=== PATIENT | male | born 1995 | race Caucasian/White ===

== ENCOUNTER 2019-12-20 08:02 | Emergency (ER) | payer BC, OTHER ==
[~2019-12-20] VITALS: Ht 189 cm; Wt 73.5 kg
[~2019-12-20 08:02] MED LIST: AZTH250C PO; CEPH500C PO; HYOS0.1217 PO; OMEP40CA36 PO; PRM25T PO; SERT25TA PO
[2019-12-20] MEDS ORDERED: NS IV 1000 ML 1,000 ML ONE (08:31)
[2019-12-20] MEDS ORDERED: NS IV 1000 ML 1,000 ML IV ONE (08:35)
[2019-12-20 08:51] LABS: BASOPHILS % (AUTO) 0 % (0-10); EOSINOPHILS % (AUTO) 0 % (0-10); HEMATOCRIT 44 % (40-54); HEMOGLOBIN 15.6 G/DL (13.3-17.7); LYMPHOCYTES # (AUTO) 0.7 X 10^3 (1.0-4.0); LYMPHOCYTES % (AUTO) 25 % (12-44); MEAN CORPUSCULAR HEMOGLOBIN 30 PG (25-34); MEAN CORPUSCULAR HGB CONC 35 G/DL (32-36); MEAN CORPUSCULAR VOLUME 86 FL (80-99); MEAN PLATELET VOLUME 9.3 FL (7.4-10.4); MONOCYTES # (AUTO) 0.2 X 10^3 (0.0-1.0); MONOCYTES % (AUTO) 6 % (0-12); NEUTROPHILS # (AUTO) 2.1 X 10^3 (1.8-7.8); NEUTROPHILS % (AUTO) 69 % (42-75); PLATELET COUNT 143 10^3/uL (130-400)
--- NOTE | 2019-12-20 09:05 | ED Cough/URI ---
General Chief Complaint: Fever-Adult/Adol Stated Complaint: FEVER, CHEST TIGHTNESS Nursing Triage Note: fever starting 12/19/19, continuing to today. having some chest tightness, fatigue, no appetite and sore throat today as well. lives at home with parents, attends [employer]. tested negative 2 weeks ago from [facility] [place] [place] [facility]. Sepsis Screen: Possible Severe Sepsis Risk Source: patient Exam Limitations: no limitations History of Present Illness Date Seen by Provider: Dec 20, 2019 Time Seen by Provider: 08:26 Initial Comments Here with report of fatigue, chest tightness, decreased appetite, fever and overall not feeling well since yesterday. Noted higher fever today and take i buprofen and Tylenol. He is at [employer] student. Did have contact with COVID-19 a few weeks ago but nothing had, that. Started having symptoms yesterday. His mother works at a retirement. He lives at home with his mom and dad. Timing/Duration: yesterday, getting worse Severity/Quality: moderate, dry cough Prior Episodes/Possible Cause: no prior episodes Modifying Factors: Improves With Rest Associated Symptoms: cough, fever/chills, muscle aches, nasal congestion, shortness of breath, sore throat Allergies and Home Medications Allergies Coded Allergies: peanut (Verified Allergy, Unknown, 02/22/12) Home Medications Azithromycin 250 Mg Tablet, 1 TAB PO DAILY, (Reported) Cephalexin Monohydrate 500 Mg Capsule, 1 EACH PO QID Prescribed by: THADDEUS BOOTH on 02/22/12 1045 Promethazine Hcl 25 Mg Tablet, 1 TAB PO QID, (Reported) Patient Home Medication List Home Medication List Reviewed: Yes Review of Systems Review of Systems Constitutional: see HPI; No chills, No fever EENTM: nose congestion, throat pain Respiratory: cough, short of breath Cardiovascular: No chest pain, No edema Gastrointestinal: No abdominal pain, No nausea, No vomiting Genitourinary: No dysuria, No hematuria Musculoskeletal: see HPI Skin: no symptoms reported Psychiatric/Neurological: No Symptoms Reported All Other Systems Reviewed Negative Unless Noted: Yes Past Rmrnxlg-Wvpogt-Iaxhzo Hx Past Med/Social Hx: Reviewed Nursing Past Med/Soc Hx Patient Social History Alcohol Use: Rarely Uses Recreational Drug Use: No Smoking Status: Never a Smoker Recent Foreign Travel: No Contact w/Someone Who Travel: No Recent Infectious Disease Expo: Yes (COVID 19) Recent Hopitalizations: No Immunizations Up To Date Tetanus Booster (TDap): Unknown Seasonal Allergies Seasonal Allergies: Yes Past Medical History Surgeries: No Respiratory: No Cardiac: No Neurological: No Genitourinary: No Gastrointestinal: No Musculoskeletal: No Endocrine: No HEENT: No Cancer: No Psychosocial: No Integumentary: No Blood Disorders: No Family Medical History Reviewed Nursing Family Hx No Pertinent Family Hx Physical Exam Vital Signs - First Documented 12/20/19 08:27 Temp 38.1 Pulse 105 Pulse Ox 94 O2 Delivery Room Air Capillary Refill : NONE Height: 5'6" Weight: 110lbs. oz. kg; 20.00 BMI Method:Stated General Appearance: WD/WN, mild distress HEENT: PERRL/EOMI, pharynx normal Neck: full range of motion, supple Respiratory: lungs clear, normal breath sounds Cardiovascular: no murmur, tachycardia Gastrointestinal: non tender, soft Extremities: non-tender, normal inspection Neurologic/Psychiatric: alert, oriented x 3 Skin: normal color, warm/dry Progress/Results/Core Measures Suspected Sepsis Recent Fever Within 48 Hours: Yes Infection Criteria Present: Suspected New Infection New/Unexplained Altered Menta: No Sepsis Screen: Possible Severe Sepsis Risk SIRS Temperature: Pulse: 105 Respiratory Rate: Laboratory Tests 12/20/19 08:40: White Blood Count 3.0L Blood Pressure / Mean: Laboratory Tests 12/20/19 08:40: Creatinine 1.04, Platelet Count 143, Total Bilirubin 0.6 Results/Orders Lab Results Laboratory Tests Test 12/20/19 08:40 Range/Units White Blood Count 3.0 L 4.3-11.0 10^3/uL Red Blood Count 5.15 4.35-5.85 10^6/uL Hemoglobin 15.6 13.3-17.7 G/DL Hematocrit 44 40-54 % Mean Corpuscular Volume 86 80-99 FL Mean Corpuscular Hemoglobin 30 25-34 PG Mean Corpuscular Hemoglobin Concent 35 32-36 G/DL Red Cell Distribution Width 13.3 10.0-14.5 % Platelet Count 143 130-400 10^3/uL Mean Platelet Volume 9.3 7.4-10.4 FL Neutrophils (%) (Auto) 69 42-75 % Lymphocytes (%) (Auto) 25 12-44 % Monocytes (%) (Auto) 6 0-12 % Eosinophils (%) (Auto) 0 0-10 % Basophils (%) (Auto) 0 0-10 % Neutrophils # (Auto) 2.1 1.8-7.8 X 10^3 Lymphocytes # (Auto) 0.7 L 1.0-4.0 X 10^3 Monocytes # (Auto) 0.2 0.0-1.0 X 10^3 Eosinophils # (Auto) 0.0 0.0-0.3 10^3/uL Basophils # (Auto) 0.0 0.0-0.1 10^3/uL Sodium Level 138 135-145 MMOL/L Potassium Level 3.3 L 3.6-5.0 MMOL/L Chloride Level 104 98-107 MMOL/L Carbon Dioxide Level 22 21-32 MMOL/L Anion Gap 12 5-14 MMOL/L Blood Urea Nitrogen 15 7-18 MG/DL Creatinine 1.04 0.60-1.30 MG/DL Estimat Glomerular Filtration Rate > 60 BUN/Creatinine Ratio 14 Glucose Level 138 H 70-105 MG/DL Calcium Level 8.8 8.5-10.1 MG/DL Corrected Calcium 8.5 8.5-10.1 MG/DL Total Bilirubin 0.6 0.1-1.0 MG/DL Aspartate Amino Transf (AST/SGOT) 37 H 5-34 U/L Alanine Aminotransferase (ALT/SGPT) 49 0-55 U/L Alkaline Phosphatase 78 40-136 U/L C-Reactive Protein High Sensitivity 0.84 H 0.00-0.50 MG/DL Total Protein 7.3 6.4-8.2 GM/DL Albumin 4.4 3.2-4.5 GM/DL Coronavirus 2019 ([facility]) Positive H Negative My Orders Orders - THADDEUS BOOTH MD Ns Iv 1000 Ml (Sodium Chloride 0.9%) (12/20/19 08:31) Cbc With Automated Diff (12/20/19 08:35) Comprehensive Metabolic Panel (12/20/19 08:35) Hs C Reactive Protein (12/20/19 08:35) Ed Iv/Invasive Line Start (12/20/19 08:35) Ns Iv 1000 Ml (Sodium Chloride 0.9%) (12/20/19 08:35) Covid 19 Inhouse Test (9/9/20 08:35) Medications Given in ED Current Medications Medications Dose Ordered Sig/Duane Route Start Time Stop Time Status Last Admin Dose Admin Sodium Chloride 1,000 ml @ 0 mls/hr Q0M ONCE IV 12/20/19 08:35 12/20/19 08:37 DC 12/20/19 08:45 0 MLS/HR Vital Signs/I&O 12/20/19 08:27 Temp 38.1 Pulse 105 B/P (MAP) Pulse Ox 94 O2 Delivery Room Air Capillary Refill : NONE Progress Note : Progress Note Seen and evaluated. IV, labs, LR 1 L bolus and COVID evaluation ordered. Monitor patient. We will do rapid testing as his mother is the director life at a retirement. 1020: Patient is positive for COVID-19. Patient was informed and he did call his mother to let her know. He is doing a little better now. Discharged home with return precautions. Patient verbalize understanding instructions and agreement with plan. Departure Impression Primary Impression: 2019 novel coronavirus disease (COVID-19) Disposition: 01 HOME, SELF-CARE Condition: Stable Departure-Patient Inst. Decision time for Depature: 10:30 Referrals: RICHI NO MD (PCP/Family) Primary Care Physician Patient Instructions: Coronavirus Disease 2019 (COVID-19) (DC) Add. Discharge Instructions: All discharge instructions reviewed with patient and/or family. Voiced understanding. You will be contacted by the health department or the state for isolation ins tructions and contact tracing. Please notify them of all potential contacts in the last 48 hours prior to onset of symptoms. You may take ibuprofen 600 mg every 8 hours as needed for pain. You may also take Tylenol/acetaminophen 1000 mg every 8 hours as needed for pain. Drink plenty of fluids and get plenty of rest. You will remain in isolation until released by the health department. Return for worse pain, breathing problems, weakness, inability to drink fluids or other concerns as needed. Copy Copies To 1: MAYKEL THOMAS MD, TIMOTHY D MD Dec 20, 2019 09:04
[2019-12-20 09:11] LABS: ALANINE AMINOTRANSFERASE 49 U/L (0-55); ALBUMIN 4.4 GM/DL (3.2-4.5); ALKALINE PHOSPHATASE 78 U/L (40-136); BILIRUBIN,TOTAL 0.6 MG/DL (0.1-1.0); BUN/CREATININE RATIO 14; CALCIUM 8.8 MG/DL (8.5-10.1); CARBON DIOXIDE 22 MMOL/L (21-32); CHLORIDE 104 MMOL/L (98-107); CREATININE SERUM 1.04 MG/DL (0.60-1.30); GFR ESTIMATED > 60; GLUCOSE 138 MG/DL (70-105); POTASSIUM 3.3 MMOL/L (3.6-5.0); SODIUM 138 MMOL/L (135-145); TOTAL PROTEIN 7.3 GM/DL (6.4-8.2)
[2019-12-20 10:55] VITALS: BP 115/68
== END 2019-12-20 10:55 | disposition home or self-care (01) ==
LOC: EDUNIT# 08:02 → ER 08:04
DX: U07.1 COVID-19 (principal)
CPT/HCPCS: 80053; 85025; 86141; 99282; U0002; 36415; 87635

== ENCOUNTER 2020-11-16 12:58 | Emergency (ER) | payer BC, OTHER ==
[~2020-11-16] VITALS: Ht 187 cm; Wt 81.6 kg
[2020-11-16 13:09] VITALS: BP 145/87
[2020-11-16] MEDS ORDERED: CEPH500T PO (13:53)
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
== END 2020-11-16 14:15 | disposition home or self-care (01) ==
LOC: EDUNIT# 12:58 → ER 13:00
DX: S01.81XA Laceration without foreign body of other part of head, initial encounter (principal); S60.511A Abrasion of right hand, initial encounter; F17.200 Nicotine dependence, unspecified, uncomplicated; V00.141A Fall from scooter (nonmotorized), initial encounter
CPT/HCPCS: 70100

== ENCOUNTER → 2022-07-08 | Outpatient (CLI) | payer OTHER ==
[~2022-07-08] MED LIST changes: +CEPH500T PO
--- NOTE | 2022-07-08 15:44 | Diagnostic Imaging Report ---
PROCEDURE: MRI right joint lower extremity without contrast. TECHNIQUE: Multiplanar, multisequence non contrast-enhanced MRI of the right lower extremity was accomplished. INDICATION: Ankle pain. EXAMINATION: Right ankle MRI 07/08/2022 FINDINGS: The Achilles tendon is intact. Plantar fascia unremarkable. Peroneal tendons intact. Flexor and extensor tendons intact. Anterior and posterior inferior tibiofibular ligaments intact. Anterior talofibular ligament and posterior talofibular ligament intact. Deltoid ligament and calcaneofibular ligament intact There is no acute osseous abnormality. IMPRESSION: 1. Unremarkable MRI of the ankle. Dictated by: Dictated on workstation # [id number]
== END ==
LOC: RAD 14:12
PROVIDERS: ATTEND Nurse Practitioner Family
DX: M25.571 Pain in right ankle and joints of right foot (principal)
CPT/HCPCS: 73721